=== PATIENT | female | born 1960 | race Caucasian/White ===

== ENCOUNTER → 2021-10-07 13:35 | Outpatient (BNVA) | payer MEDICARE, MEDICAID, SELFPAY | PROVIDERS: Family Provider Family Medicine; PCP Family Medicine; Visit Provider Internal Medicine Cardiovascular Disease | DX: I25.10 Atherosclerotic heart disease of native coronary artery without angina pectoris (principal); I11.0 Hypertensive heart disease with heart failure; I50.33 Acute on chronic diastolic (congestive) heart failure; I25.5 Ischemic cardiomyopathy; J44.9 Chronic obstructive pulmonary disease, unspecified; F17.200 Nicotine dependence, unspecified, uncomplicated; I25.2 Old myocardial infarction | CPT/HCPCS: 99213 ==

== ENCOUNTER 2022-01-26 10:20 | Outpatient (CLI) | payer MEDICARE, MEDICAID, SELFPAY ==
--- NOTE | 2022-01-26 10:37 | MM_ITS ---
WS: [id number] Bilateral screening 3D tomosynthesis digital mammogram, 01/26/2022 Clinical Data: SCREEN Comparison: 12/04/2018, 04/19/2017, 09/25/2012, 01/12/2009, 01/19/2006. Findings: The breast parenchymal pattern shows fat replacement. No spiculated masses or clustered calcification s are seen. There are no secondary signs of carcinoma. There are lymph nodes in both axilla. MM/[place] [id number] Impression: 1. Negative bilateral mammogram unchanged. 2. Recommend annual screening mammograms. BIRADS: 1-Negative FOLLOW UP: 1 Year Follow-up The CAD railroad car checker was used.
== END 2022-01-26 10:21 | disposition home or self-care (01) ==
LOC: RAD 10:21
PROVIDERS: Family Provider Family Medicine; PCP Family Medicine; Visit Provider Family Medicine
DX: Z12.31 Encounter for screening mammogram for malignant neoplasm of breast (principal)
CPT/HCPCS: 77063; 77067

== ENCOUNTER → 2022-10-06 14:21 | Outpatient (BNVA) | payer MEDICARE, MEDICAID, SELFPAY | PROVIDERS: Family Provider Family Medicine; PCP Family Medicine; Visit Provider Internal Medicine Cardiovascular Disease | DX: I25.10 Atherosclerotic heart disease of native coronary artery without angina pectoris (principal); I25.5 Ischemic cardiomyopathy; I11.0 Hypertensive heart disease with heart failure; I50.33 Acute on chronic diastolic (congestive) heart failure; J44.9 Chronic obstructive pulmonary disease, unspecified; F17.200 Nicotine dependence, unspecified, uncomplicated; Z79.82 Long term (current) use of aspirin | CPT/HCPCS: 99214 ==

== ENCOUNTER 2023-02-13 11:53 | Outpatient (CLI) | payer MEDICARE, MEDICAID, SELFPAY ==
--- NOTE | 2023-02-13 11:55 | MM_ITS ---
WS: [id number] BILATERAL 3D TOMOSYNTHESIS DIGITAL SCREENING MAMMOGRAM WITH CAD CLINICAL INFORMATION: SCREENING HISTORY: Screening mammogram. No current complaints. COMPARISON: 2021 TECHNIQUE: Bilateral CC and MLO views. FINDINGS: Fatty-replaced breasts bilaterally. No suspicious focal mass, asymmetry, calcifications, or sap hana architect ural distortion. No evidence of malignancy. Few tiny incidental punctate calcifications. IMPRESSION: MM/[place] [id number] BI-RADS: 2-Benign FOLLOW UP: 1 Year Follow-up Recommend return to annual screening mammography.
== END 2023-02-13 11:54 | disposition home or self-care (01) ==
LOC: RAD 11:53
PROVIDERS: PCP Family Medicine; Visit Provider Family Medicine
DX: Z12.31 Encounter for screening mammogram for malignant neoplasm of breast (principal)
CPT/HCPCS: 77063; 77067

== ENCOUNTER → 2023-08-09 11:07 | Outpatient (BNVA) | payer MEDICARE, MEDICAID, SELFPAY | PROVIDERS: PCP Family Medicine; Visit Provider Nurse Practitioner Family | DX: I25.10 Atherosclerotic heart disease of native coronary artery without angina pectoris (principal); I50.33 Acute on chronic diastolic (congestive) heart failure; F17.200 Nicotine dependence, unspecified, uncomplicated; I11.0 Hypertensive heart disease with heart failure; Z13.1 Encounter for screening for diabetes mellitus | CPT/HCPCS: 36415; 83036; 99214 ==

== ENCOUNTER 2023-11-16 20:46 | Emergency (ER) | payer MEDICARE, MEDICAID, SELFPAY ==
[2023-11-16 20:52] VITALS: BP 109/70; PULSE 73; RESP 18; TEMP 37; O2SAT 94
--- NOTE | 2023-11-16 21:10 | ECG_ITS ---
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 Measurements Intervals [place] Rate: 74 P: 77 NH: 162 QRS: 61 QRSD: 109 T: 75 QT: 381 QTc: 425 Interpretive Statements SINUS RHYTHM Compared to ECG 05/13/2017 14:36:17 No significant changes Electronically Signed On 11-17-2023 11:55:45 CDT by Devyn Schafer M.D. [id number]
--- NOTE | 2023-11-16 21:28 | XRR_ITS ---
PROCEDURE INFORMATION: Exam: XR Chest Exam date and time: 11/16/2023 9:47 PM Age: 63 years old Clinical indication: Dyspnea and shortness of breath; Additional info: Weakness, HX cad TECHNIQUE: Imaging protocol: Radiologic exam of the chest. Views: 1 view. COMPARISON: No relevant prior studies available. FINDINGS: Lungs: Unremarkable. No consolidation. Pleural spaces: Unremarkable. No pleural effusion. No pneumothorax. Heart/Mediastinum: Unremarkable. No cardiomegaly. Vasculature: Aortic arch calcifications. Bones/joints: Mild degenerative disease of bilateral acromioclavicular joints. XR/XR chest 1V portable [id number] IMPRESSION: No acute cardiopulmonary process.
--- NOTE | 2023-11-16 21:28 | CTR_ITS ---
PROCEDURE INFORMATION: Exam: CT Head Without Contrast Exam date and time: 11/16/2023 9:49 PM Age: 63 years old Clinical indication: Other: Weak; Additional info: Headache, weakness TECHNIQUE: Imaging protocol: Computed tomography of the head without contrast. Radiation optimization: All CT scans at this facility use at least one of these dose optimization techniques: automated exposure control; mA and/or kV adjustment per patient size (includes targeted exams where dose is matched to clinical indication); or iterative reconstruction. COMPARISON: No relevant prior studies available. RADIATION DOSE METRICS: Total DLP (mGy-cm): 1072 FINDINGS: Brain: Normal. No hemorrhage. Unremarkable white matter. No mass effect. Cerebral ventricles: No ventriculomegaly. Pituitary gland and sella: Partially empty sella. Paranasal sinuses: Visualized sinuses are unremarkable. No fluid levels. Mastoid air cells: Visualized mastoid air cells are well aerated. Bones: Moderate degenerative at the anterior C1-C2 articulation. Soft tissues: Unremarkable. CT/CT head wo con* [id number] IMPRESSION: No large territorial infarct or intracranial bleed.
--- NOTE | 2023-11-16 21:31 | ED_ITS ---
HPI - Weakness 2 General: Chief complaint: Weakness Stated complaint: was shaky slurred speech hunched to one side ams Time Seen by Provider: 11/16/23 21:22 History of Present Illness: 63-year-old female comes in today for co mplaints of nausea and vomiting this morning around 4:00. Patient reports that she felt really dry and her daughter brought her some liquid IV which she has been able to drink and tolerate throughout the day. Daughter was concerned because she felt that her mother was confused. Patient has normal range of motion. Patient does have some chronic lymphedema to lower extremities, patient does have a history of coronary artery disease, patient takes levothyroxine routinely, patient's had no further vomiting since this morning. Patient denies chest pain or shortness of breath. Patient's CT was in 2017 with 3 stent placements. Review of Systems 2 General: Reports: 10 or more systems reviewed and unremarkable except in HPI and below PFSH ED 2 PFSH: Medical History History of CT (myocardial infarction) COPD (chronic obstructive pulmonary disease) Quit smoking Lower extremity edema CHF (congestive heart failure) Ischemic cardiomyopathy HTN (hypertension) CAD (coronary artery disease) Surgical History History of heart artery stent Family History Mother Diabetes Heart disease Hypertension Brother Diabetes Heart disease Hypertension Cancer Melanoma Stroke Grandmother Diabetes Hypertension Stroke Sister Hypertension Father Cancer kidney CA Other Schizophrenia Social History Smoking and tobacco/nicotine status: current every day tobacco/nicotine user Physical Exam 2 Const: COMMON NORMALS: alert HENMT: COMMON NORMALS: normocephalic HEAD & SCALP: normocephalic Neck/C-Spine: COMMON NORMALS: full ROM Resp: COMMON NORMALS: normal respiratory effort and clear to auscultation bilaterally AUSCULTATION: clear to auscultation bilaterally Cardio: COMMON NORMALS: regular rate and regular rhythm RATE: regular rate RHYTHM: regular rhythm GI: COMMON NORMALS: Soft to palpation and non-tender PALPATION: Yes Soft to palpation Back/Pelvis: COMMON NORMALS: thoracic and lumbar spine normal to inspection Extremity: COMMON NORMALS: full ROM Neuro: SENSORIUM/ORIENTATION: Yes alert Skin: COMMON NORMALS: turgor normal NARRATIVE SKIN EXAM: Chronic skin changes due to lymphedema to lower extremities. GENERAL SKIN EXAM: turgor normal Course 2 Vital Signs: Vital signs: Vital Signs Temperature 98.6 F 11/16/23 20:52 Pulse Rate 73 11/16/23 20:52 Respiratory Rate 18 11/16/23 20:52 Blood Pressure 109/70 11/16/23 20:52 Pulse Oximetry 94 11/16/23 20:52 MDM - Weakness Medical Decision Making 63-year-old female comes in today with episode of nausea and vomiting this morning at 4:00. Patient since then has not had no further episodes of emesis and has been able to hold down fluids. Patient reports no diarrhea. Patient reports a mild headache. Patient denies any shortness of breath or chest pain. Daughter was concerned that patient may be dehydrated due to some mild confusion and slurring of speech. Vital signs are normal. Differential diagnosis includes but not limited to stroke syndrome, ACS, dehydration, gastroenteritis, UTI, electrolyte imbalance. CBC notes mild leukocytosis at 25. Sodium was 132. Lactic was 0.9. Creatinine was 1.1. Urinalysis had a large amount of white blood cells. Believe patient was likely has urinary tract infection. Patient was given 1 L of IV fluids and 2 g of Rocephin. Patient was continued on cephalexin. Patient was alert and oriented and stable and was discharged home. Daughter agreed to monitor and make sure that mother was doing okay and with return as needed for worsening symptoms. Lab Data 11/16/23 21:45 11/16/23 21:45 Radiology Impressions Chest X-Ray 11/16/23 21:28 IMPRESSION: No acute cardiopulmonary process. Head CT 11/16/23 21:28 IMPRESSION: No large territorial infarct or intracranial bleed. Laboratory Results WBC 25.09 10^3/uL (3.29-11.43) H 11/16/23 21:45 RBC 4.25 10^6/uL (3.85-5.65) 11/16/23 21:45 Hgb 13.60 g/dL (11.27-16.99) 11/16/23 21:45 Hct 40.0 % (36-47) 11/16/23 21:45 MCV 94.1 fl (85-98) 11/16/23 21:45 MCH 32.0 pg (27-33) 11/16/23 21:45 MCHC 34.0 g/dL (30-55) 11/16/23 21:45 RDW 12.3 % (12.1-15.1) 11/16/23 21:45 Plt Count 203 10^3/cmm (157-399) 11/16/23 21:45 MPV 9.5 fL (7.4-10.4) 11/16/23 21:45 Neut % (Auto) 85.5 % 11/16/23 21:45 Lymph % (Auto) 8.8 % 11/16/23 21:45 [place] % (Auto) 4.9 % 11/16/23 21:45 Eos % (Auto) 0.0 % 11/16/23 21:45 Baso % (Auto) 0.3 % 11/16/23 21:45 Neut # (Auto) 21.43 10^3/uL (1.8-7.7) H 11/16/23 21:45 Lymph # (Auto) 2.2 10^3/uL (0.8-4.8) 11/16/23 21:45 [place] # (Auto) 1.2 10^3/uL (0.2-0.9) H 11/16/23 21:45 Eos # (Auto) 0.0 10^3/uL (0.0-0.8) 11/16/23 21:45 Baso # (Auto) 0.1 10^3/uL (0.0-0.1) 11/16/23 21:45 Nucleated RBC % (auto) 0 % 11/16/23 21:45 Nucleated RBCs # 0.0 /100WBC 11/16/23 21:45 Sodium 132 mmol/L (136-145) L 11/16/23 21:45 Potassium 4.1 mmol/L (3.5-5.1) 11/16/23 21:45 Chloride 98 mmol/L (98-107) 11/16/23 21:45 Carbon Dioxide 21 mmol/L (22-29) L 11/16/23 21:45 Anion Gap 17.1 (5-19) 11/16/23 21:45 BUN 17 mg/dL (8-23) 11/16/23 21:45 Creatinine 1.1 mg/dL (0.5-0.9) H 11/16/23 21:45 GFR Calculation 50.2 mL/min (90-130) L 11/16/23 21:45 Glucose 112 mg/dL (65-115) 11/16/23 21:45 Calculated Osmolality 276 mOsm/kg (285-295) L 11/16/23 21:45 Lactic Acid 0.9 mmol/L (0.5-2.2) 11/16/23 21:45 Calcium 8.8 mg/dL (8.5-10.5) 11/16/23 21:45 Total Bilirubin 0.6 mg/dL (0.15-1.2) 11/16/23 21:45 AST 17 U/L (0-32) 11/16/23 21:45 ALT 12 U/L (0-33) 11/16/23 21:45 Alkaline Phosphatase 77 U/L (35-105) 11/16/23 21:45 Troponin T Baseline 12 ng/L (0-10) H 11/16/23 21:45 Total Protein 5.9 g/dL (6.6-8.7) L 11/16/23 21:45 Albumin 3.8 g/dL (3.5-5.2) 11/16/23 21:45 Globulin 2.1 g/dL (1.3-4.6) 11/16/23 21:45 Lipase 19 U/L (13-60) 11/16/23 21:45 Urine Color Yellow (Yellow) 11/16/23 22:05 Urine Appearance Cloudy (CLEAR) A 11/16/23 22:05 Urine pH 5.5 (5-7) 11/16/23 22:05 Ur Specific [place] 1.013 (1.005-1.030) 11/16/23 22:05 Urine Protein Trace (Negative) A 11/16/23 22:05 Urine Glucose (UA) Negative (Normal) 11/16/23 22:05 Urine Ketones Negative (Negative) 11/16/23 22:05 Urine Blood 3+ (Negative) A 11/16/23 22:05 Urine Nitrate Negative (Negative) 11/16/23 22:05 Urine Bilirubin Negative (Negative) 11/16/23 22:05 Urine Urobilinogen 1.0 mg/dL (Negative) 11/16/23 22:05 Ur Leukocyte Esterase 3+ (Negative) A 11/16/23 22:05 Urine RBC 6-10 /hpf (0-2) 11/16/23 22:05 Urine WBC 51-100 /hpf (0-5) H 11/16/23 22:05 Ur Squamous Epith Cells 6-10 /hpf (0-5) 11/16/23 22:05 Amorphous Sediment Not Reportable 11/16/23 22:05 Urine Bacteria 2+ /hpf (NONE) H 11/16/23 22:05 Hyaline Casts 4.11 /lpf 11/16/23 22:05 Coarse Granular Casts 0-4 /lpf H 11/16/23 22:05 All radiology interpretation(s) finalized by discharge Discharge Plan Discharge Patient Disposition: Home Clinical Impression: UTI (urinary tract infection) Qualifiers: Urinary tract infection type: acute cystitis Hematuria presence: without hematuria Qualified Code(s): N30.00 - Acute cystitis without hematuria Condition: Stable Prescriptions: New cephalexin 500 mg capsule 500 mg PO BID 7 Days Qty: 14 0RF No Action aspirin [Adult Low Dose Aspirin] 81 mg tablet,delayed release (DR/EC) 81 mg PO DAILY cetirizine 10 mg tablet 10 mg PO DAILY levothyroxine 88 mcg capsule 88 mcg PO DAILY albuterol sulfate [ProAir HFA] 90 mcg/actuation HFA aerosol inhaler 2 puff INHALATION Q6H PRN multivitamin Tablet 1 tab PO DAILY fluticasone propionate [Flonase Allergy Relief] 50 mcg/actuation spray,suspension 1 spray INTRANASAL DAILY PRN furosemide [Lasix] 40 mg tablet 40 mg PO DAILY PRN (Reason: edema) diphenhydramine HCl [Benadryl] 25 mg capsule 25 mg PO .HS cholecalciferol (vitamin D3) 25 mcg (1,000 unit) capsule 25 mcg PO DAILY melatonin 5 mg tablet 5 mg PO .HS potassium chloride 10 mEq tablet extended release 10 meq PO BID Qty: 180 3RF Probiotic 100 billion cell capsule 1 cap PO DAILY Qty: 90 3RF spironolactone 25 mg tablet 12.5 mg PO DAILY Qty: 45 3RF clopidogrel 75 mg tablet 75 mg PO DAILY Qty: 90 3RF atorvastatin 40 mg tablet 40 mg PO DAILY Qty: 90 3RF losartan 50 mg tablet See Rx Instructions .ROUTE .COMPLEX Qty: 90 3RF Dose Instruction: TAKE 1 TABLET BY MOUTH DAILY Rx Instructions: TAKE 1 TABLET BY MOUTH DAILY Discharge Orders: Discharge ED (Routine); Ordered 11/16/23 Ordered By: Viet Day Referrals: Araceli Cortez MD [Primary Care Provider] - Discharge Diet: Usual diet Discharge Activity: Increase activity as tolerated Patient Instructions: Urinary Tract Infection in Older Adults (ED) Activity Restrictions/Additional Instructions: Make sure to stay well-hydrated with plenty of fluids. Take medication as directed. Follow-up with primary care in 3 to 5 days for recheck. Return to ED for new concerns. Coding Level of Care Code ED Medical Biller Coder for Nancy Landry
[2023-11-16 21:48] LABS: Basophils # 0.1 10^3/uL (0.0-0.1); Basophils % 0.3 %; Lymphocytes # 2.2 10^3/uL (0.8-4.8); Lymphocytes % 8.8 %; Mean Corpuscular Volume 94.1 fl (85-98); Mean Platelet Volume 9.5 fL (7.4-10.4); Monocytes # 1.2 10^3/uL (0.2-0.9); Monocytes % 4.9 %; Neutrophils # 21.43 10^3/uL (1.8-7.7); Neutrophils % 85.5 %; Nucleated Red Blood Cells % 0 %; Platelet Count 203 10^3/cmm (157-399); Red Blood Count 4.25 10^6/uL (3.85-5.65); Red Cell Distribution Width 12.3 % (12.1-15.1); White Blood Count 25.09 10^3/uL (3.29-11.43)
[2023-11-16 22:11] LABS: Charge for UA Resulting for Rev
[2023-11-16 22:13] LABS: Troponin(5th) Baseline 12 ng/L (0-10)
[2023-11-16 22:14] LABS: Alanine Aminotransferase 12 U/L (0-33); Albumin Level 3.8 g/dL (3.5-5.2); Alkaline Phosphatase 77 U/L (35-105); Anion Gap 17.1 (5-19); Aspartate Amino Transferase 17 U/L (0-32); Blood Urea Nitrogen 17 mg/dL (8-23); Calcium 8.8 mg/dL (8.5-10.5); Carbon Dioxide 21 mmol/L (22-29); Chloride 98 mmol/L (98-107); Creatinine Clr Calc Pharmacy 58.5454; Globulin 2.1 g/dL (1.3-4.6); Glomerular Filtration Rate 50.2 mL/min (90-130); Glucose 112 mg/dL (65-115); Lipase 19 U/L (13-60); Osmolality Calculated 276 mOsm/kg (285-295); Potassium 4.1 mmol/L (3.5-5.1); Sodium 132 mmol/L (136-145); Total Bilirubin 0.6 mg/dL (0.15-1.2); Total Protein 5.9 g/dL (6.6-8.7)
[2023-11-16 22:15] LABS: Bilirubin Urine Negative (Negative); Blood Urine 3+ (Negative); Glucose Urine UA Negative (Normal); Ketones Urine Negative (Negative); Leukocyte Esterase Urine 3+ (Negative); Nitrate Urine Negative (Negative); Protein Urine Trace (Negative); Specific Gravity, Urine 1.013 (1.005-1.030); Urine Appearance Cloudy (CLEAR); Urine Color Yellow (Yellow); pH Urine 5.5 (5-7)
[2023-11-16 22:20] LABS: Bacteria Urine 2+ /hpf; Hyaline Casts Urine 4.11 /lpf; WBC Urine 51-100 /hpf (0-5)
[2023-11-16] MEDS: sodium chloride 0.9% 1,000 ML 999 ML IV (22:29)
[2023-11-16 22:30] LABS: Lactic Sepsis W/Reflex 0.9 mmol/L (0.5-2.2)
[2023-11-16 22:42] LABS: Coarse Granular Casts Urine 0-4 /lpf
[2023-11-16 22:43] LABS: Add Urine Culture? Yes
[2023-11-16 23:23] VITALS: BP 135/61; PULSE 75; RESP 16; O2SAT 97
[2023-11-16] MEDS: cefTRIAXone 2,000 mg SDV 2000 MG IVP (23:25)
== END 2023-11-16 23:40 | disposition home or self-care (01) ==
PROVIDERS: Emergency Provider Nurse Practitioner Family; PCP Family Medicine
DX: N30.00 Acute cystitis without hematuria (principal); Z79.02 Long term (current) use of antithrombotics/antiplatelets; Z79.82 Long term (current) use of aspirin; Z72.0 Tobacco use; I25.2 Old myocardial infarction; J44.9 Chronic obstructive pulmonary disease, unspecified; I11.0 Hypertensive heart disease with heart failure; I50.9 Heart failure, unspecified; I25.10 Atherosclerotic heart disease of native coronary artery without angina pectoris; I25.5 Ischemic cardiomyopathy
CPT/HCPCS: 70450; 71045; 80053; 81003; 81015; 83605; 83690; 84484; 85025; 87086; 93005; 96361; 96374; 99285; J0696; J7030

== ENCOUNTER 2024-06-20 11:22 | Outpatient (RCR) | payer MEDICARE, MEDICAID, SELFPAY | END 2024-07-08 23:59 | disposition home or self-care (01) | LOC: SPT 11:22 | PROVIDERS: Visit Provider Family Medicine | DX: I89.0 Lymphedema, not elsewhere classified (principal) | CPT/HCPCS: 97161 ==

== ENCOUNTER → 2024-07-31 15:02 | Outpatient (BNVA) | payer MEDICARE, MEDICAID, SELFPAY | PROVIDERS: Visit Provider Internal Medicine | DX: I25.10 Atherosclerotic heart disease of native coronary artery without angina pectoris (principal); I11.0 Hypertensive heart disease with heart failure; I50.33 Acute on chronic diastolic (congestive) heart failure; Z13.1 Encounter for screening for diabetes mellitus; F17.210 Nicotine dependence, cigarettes, uncomplicated; I25.2 Old myocardial infarction | CPT/HCPCS: 99214 ==

== ENCOUNTER 2024-08-21 13:17 | Outpatient (CLI) | payer OTHER, MEDICAID, SELFPAY ==
--- NOTE | 2024-08-21 | MM_ITS ---
WS: [id number] BILATERAL 3D TOMOSYNTHESIS DIGITAL SCREENING MAMMOGRAPHY WITH CAD CLINICAL INFORMATION: ANNUAL SCREENING HISTORY: Screening mammogram. No current complaints. COMPARISON: 2022 TECHNIQUE: Bilateral CC and MLO views. FINDINGS: Scattered fibroglandular densities bilaterally. No suspicious focal mass, asymmetry, calcifications, or architectural distortion. No evidence of malignancy. MM/MM scr BI tomosynthesis [id number] IMPRESSION: DENSITY: There are scattered areas of fibroglandular density. BI-RADS: 2 - Benign. FOLLOW UP: 1 Year Follow-up Recommend return to annual screening mammography.
== END 2024-08-21 13:18 | disposition home or self-care (01) ==
LOC: RAD 13:20
PROVIDERS: PCP Family Medicine; Visit Provider Family Medicine
DX: Z12.31 Encounter for screening mammogram for malignant neoplasm of breast (principal); R92.323 Mammographic fibroglandular density, bilateral breasts
CPT/HCPCS: 77063; 77067

== ENCOUNTER → 2025-02-27 10:02 | Outpatient (BNVA) | payer OTHER, MEDICAID, SELFPAY | PROVIDERS: PCP Family Medicine; Visit Provider Clinical Nurse Specialist Adult Health | DX: E55.9 Vitamin D deficiency, unspecified (principal); E03.9 Hypothyroidism, unspecified; I25.10 Atherosclerotic heart disease of native coronary artery without angina pectoris; J44.9 Chronic obstructive pulmonary disease, unspecified; I25.5 Ischemic cardiomyopathy; I11.0 Hypertensive heart disease with heart failure; I50.33 Acute on chronic diastolic (congestive) heart failure | CPT/HCPCS: 80053; 80061; 82306; 83036; 83735; 84443; 85025 ==